=== PATIENT | female | born 2000 | race Caucasian/White ===

== ENCOUNTER 2020-12-23 11:04 | Emergency (ER) | payer BC, OTHER, SELFPAY ==
[~2020-12-23] VITALS: Ht 172.7 cm; Wt 63.2 kg
--- NOTE | 2020-12-23 13:06 | NUR ---
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
[2020-12-23] MEDS ORDERED: KETOROLAC 30 MG/1 ML ONE (13:19)
[2020-12-23] MEDS ORDERED: KETOROLAC 30 MG/1 ML IM ONE (13:30)
[2020-12-23 13:35] VITALS: BP 125/78
== END 2020-12-23 13:36 | disposition home or self-care (01) ==
LOC: ED 13:28
DX: S16.1XXA Strain of muscle, fascia and tendon at neck level, initial encounter (principal); S29.012A Strain of muscle and tendon of back wall of thorax, initial encounter; X58.XXXA Exposure to other specified factors, initial encounter; Y93.89 Activity, other specified; Y92.89 Other specified places as the place of occurrence of the external cause; Y99.8 Other external cause status
CPT/HCPCS: 72050; 72072; 96372; 99284; J1885